=== PATIENT | male | born 1980 | race Caucasian/White ===

== ENCOUNTER 2019-09-13 00:39 | Emergency (ER) | payer OTHER ==
[2019-09-13] MEDS ORDERED: NA CHLORIDE 0.9% 1,000 ML ONE (01:04)
[2019-09-13 01:26] LABS: Absolute Lymphocytes (CBC) 1.8 K/uL (0.7-4.9); Basophils % 0.5 % (0-1.3); Hematocrit 43.9 % (39.6-49.0); Lymphocytes % 26.9 % (15.3-44.8); MPV 8.7 fL (7.6-11.3); RBC Red Blood Cell Count 5.12 M/uL (4.33-5.43)
[2019-09-13 01:34] LABS: Urine Blood 2+ (NEG); Urine Glucose NEGATIVE (NEG); Urine Protein 1+ (NEG); Urine Specific Gravity >1.030 (1.005-1.030)
[2019-09-13 01:49] LABS: Barbiturates NEGATIVE (NEGATIVE); Benzodiazepines NEGATIVE (NEGATIVE); Cocaine NEGATIVE (NEGATIVE); METHAMPHETAM NEGATIVE (NEGATIVE); Methadone NEGATIVE (NEGATIVE); Opiates NEGATIVE (NEGATIVE); Phencyclidine NEGATIVE (NEGATIVE); THC Cannibis NEGATIVE (NEGATIVE)
--- NOTE | 2019-09-13 01:57 | EDPHYS ---
Physician Documentation [facility] Name: Rafael Mcmullen Age: 39 yrs Sex: Male : 1980 Arrival Date: 09/13/2019 Time: 00:[address] Private MD: Fer Luong HPI: 09/12 00:54 This 39 yrs old Male presents to ER via EMS with complaints of Seizure. yoko 00:54 The patient presents after having a single isolated seizure, that lasted 2 minute(s). yoko Character of seizure(s): Loss of consciousness: the patient experienced loss of consciousness, Motor activity: generalized, shaking all over, Incontinence: none, Apnea: the patient did not experience apnea, Circulation: the patient did not experience evidence of pulse disturbance. Seizure onset: just prior to arrival. Context: the seizure(s) was witnessed, by family, . Seizure Hx: the patient has no previous seizure history. Associated injury: The patient did not suffer any apparent associated injury. EMS care: none. Current symptoms: Currently, the patient is not experiencing any symptoms, the patient feels back to baseline. The patient has not experienced similar symptoms in the past. Historical: - Allergies: 00:51 No Known Allergies; jd3 - Home Meds: 00:51 None [Active]; jd3 - PMHx: 00:51 None; jd3 - PSHx: 00:51 back surgery; Knee surgery; pneumothorax; jd3 - Immunization history:: Adult Immunizations up to date. - Social history:: Smoking status: Patient reports use of chewing tobacco. - Family history:: not pertinent. ROS: 00:54 Constitutional: Negative for fever, chills, and weight loss, Eyes: Negative for injury, yoko pain, redness, and discharge, ENT: Negative for injury, pain, and discharge, Neck: Negative for injury, pain, and swelling, Cardiovascular: Negative for chest pain, palpitations, and edema, Respiratory: Negative for shortness of breath, cough, wheezing, and pleuritic chest pain, Abdomen/GI: Negative for abdominal pain, nausea, vomiting, diarrhea, and constipation, Back: Negative for injury and pain, : Negative for injury, bleeding, discharge, and swelling, MS/Extremity: Negative for injury and deformity, Skin: Negative for injury, rash, and discoloration, Psych: Negative for depression, anxiety, suicide ideation, homicidal ideation, and hallucinations, Allergy/Immunology: Negative for hives, rash, and allergies, Endocrine: Negative for neck swelling, polydipsia, polyuria, polyphagia, and marked weight changes. 00:54 Neuro: Positive for seizure activity. Exam: 00:47 ECG was reviewed by the Attending Physician. yoko 00:54 Constitutional: This is a well developed, well nourished patient who is awake, alert, yoko and in no acute distress. Head/Face: Normocephalic, atraumatic. Eyes: Pupils equal round and reactive to light, extra-ocular motions intact. Lids and lashes normal. Conjunctiva and sclera are non-icteric and not injected. Cornea within normal limits. Periorbital areas with no swelling, redness, or edema. ENT: Nares patent. No nasal discharge, no septal abnormalities noted. Tympanic membranes are normal and external auditory canals are clear. Oropharynx with no redness, swelling, or masses, exudates, or evidence of obstruction, uvula midline. Mucous membranes moist. Neck: Trachea midline, no thyromegaly or masses palpated, and no cervical lymphadenopathy. Supple, full range of motion without nuchal rigidity, or vertebral point tenderness. No Meningismus. Chest/axilla: Normal chest wall appearance and motion. Nontender with no deformity. No lesions are appreciated. Cardiovascular: Regular rate and rhythm with a normal S1 and S2. No gallops, murmurs, or rubs. Normal PMI, no JVD. No pulse deficits. Respiratory: Lungs have equal breath sounds bilaterally, clear to auscultation and percussion. No rales, rhonchi or wheezes noted. No increased work of breathing, no retractions or nasal flaring. Abdomen/GI: Soft, non-tender, with normal bowel sounds. No distension or tympany. No guarding or rebound. No evidence of tenderness throughout. Back: No spinal tenderness. No costovertebral tenderness. Full range of motion. Male : Normal genitalia with no discharge or lesions. Skin: Warm, dry with normal turgor. Normal color with no rashes, no lesions, and no evidence of cellulitis. MS/ Extremity: Pulses equal, no cyanosis. Neurovascular intact. Full, normal range of motion. Neuro: Awake and alert, GCS 15, oriented to person, place, time, and situation. Cranial nerves II-XII grossly intact. Motor strength 5/5 in all extremities. Sensory grossly intact. Cerebellar exam normal. Normal gait. Psych: Awake, alert, with orientation to person, place and time. Behavior, mood, and affect are within normal limits. 00:54 Neck: External neck: is normal, no acute changes, ROM/movement: is normal, no acute changes, Lymph nodes: no appreciated lymphadenopathy. Vital Signs: 00:51 BP 147 / 98; Pulse 99; Resp 17 S; Temp 98.2(O); Pulse Ox 98% on R/A; Weight 86.18 kg jd3 (R); Height 6 ft. 0 in. (182.88 cm) (R); Pain 0/10; 02:24 BP 140 / 89; Pulse 84; Resp 17 S; Pulse Ox 97% on R/A; jd3 03:20 BP 144 / 92; Pulse 96; Resp 16 S; Pulse Ox 97% on R/A; jd3 04:09 BP 148 / 86; Pulse 81; Resp 17 S; Pulse Ox 97% on R/A; jd3 00:51 Body Mass Index 25.77 (86.18 kg, 182.88 cm) jd3 [place] Coma Score: 00:53 Eye Response: spontaneous(4). Verbal Response: oriented(5). Motor Response: obeys jd3 commands(6). Total: 15. MDM: 00:41 Patient medically screened. [facility] 00:55 Data reviewed: vital signs, nurses notes, lab test result(s), EKG, radiologic studies, [facility] CT scan, plain films. 00:56 Differential diagnosis: drug overdose, cardiac arrhythmia, seizure, TIA. Data [facility] interpreted: admission nurse coordinator: rate is 99 beats/min, Pulse oximetry: on room air is 98 %. Test interpretation: by ED physician or midlevel provider: ECG, plain radiologic studies. Counseling: I had a detailed discussion with the patient and/or guardian regarding: the historical points, exam findings, and any diagnostic results supporting the discharge/admit diagnosis, lab results, radiology results, the need for outpatient follow up, for definitive care, a neurologist. ED course: hx of spon ptx. 01:47 ED course: left parietal brain mass with edema, vent obs on left. ED course: dw , yoko and pt , going to neuro icu at [facility]. 02:03 Physician consultation: neuro team, icu, [facility] [facility] 03:17 ED course: late history, pt had many falls prior to arrival, no co back pain, will ct [facility] c/t/l spine ro fx. 09/12 00:47 Order name: Basic Metabolic Panel; Complete Time: 02:04 [facility] 09/12 00:47 Order name: CBC with Diff; Complete Time: 01:47 [facility] 09/12 00:47 Order name: LFT's; Complete Time: 02:04 [facility] 09/12 00:47 Order name: Magnesium; Complete Time: 02:04 [facility] 09/12 00:47 Order name: NT PRO-BNP; Complete Time: 02:04 [facility] 09/12 00:47 Order name: Troponin (emerg Dept Use Only); Complete Time: 02:04 [facility] 09/12 00:47 Order name: XRAY Chest (1 view) [facility] 09/12 00:47 Order name: Acetaminophen; Complete Time: 02:04 [facility] 09/12 00:47 Order name: ETOH Level; Complete Time: 01:47 [facility] 09/12 00:47 Order name: Salicylate; Complete Time: 01:47 [facility] 09/12 00:47 Order name: Urine Drug Screen; Complete Time: 02:04 [facility] 09/12 00:47 Order name: CT Head Brain wo Cont [facility] 09/12 01:32 Order name: Urine Dipstick--Ancillary (enter results); Complete Time: 01:47 ds4 09/12 03:16 Order name: CT C Spine [facility] 09/12 00:47 Order name: EKG; Complete Time: 00:49 [facility] 09/12 00:47 Order name: Cardiac monitoring; Complete Time: 00:54 [facility] 09/12 00:47 Order name: EKG - Nurse/Tech; Complete Time: 00:54 [facility] 09/12 00:47 Order name: IV Saline Lock; Complete Time: 00:54 [facility] 09/12 00:47 Order name: Labs collected and sent; Complete Time: 01:12 [facility] 09/12 00:47 Order name: O2 Per Protocol; Complete Time: 00:54 [facility] 09/12 00:47 Order name: O2 Sat Monitoring; Complete Time: 00:54 [facility] 09/12 00:47 Order name: Urine Dipstick-Ancillary (obtain specimen); Complete Time: 01:31 [facility] 09/12 00:47 Order name: Seizure Precautions; Complete Time: 00:54 [facility] 09/12 03:16 Order name: CT Chest Abdomen Pelvis W/O Contrast: trauma [facility] EC:47 Rate is 97 beats/min. Rhythm is regular. QRS [place] is Normal. CA interval is normal. QRS yoko interval is normal. QT interval is normal. No Q waves. T waves are Normal. No ST changes noted. Clinical impression: Normal ECG and No evidence of ischemia. Interpreted by me. Reviewed by me. Administered Medications: Discontinued: NS 0.9% 1000 ml IV at 1 bolus Per protocol; 1000 mL bolus 01:12 Drug: NS 0.9% 1000 ml Route: IV; Rate: 1 bolus; Site: right antecubital; jd3 02:00 Follow up: Response: No adverse reaction; IV Status: Completed infusion; IV Intake: jd3 1000ml 02:23 Drug: Keppra 1000 mg Route: IV; Rate: per protocol; Site: right antecubital; jd3 02:48 Follow up: Response: No adverse reaction; IV Status: Completed infusion; IV Intake: jd3 100ml 02:23 Drug: NS 0.9% with KCl 20 mEq/L 1000 ml Route: IV; Rate: 125 mg/hr; Site: right [facility] antecubital; 04:10 Follow up: Response: No adverse reaction; IV Status: Infusion continued upon transfer jd3 02:24 Drug: Decadron - Dexamethasone 10 mg Route: IVP; Site: right antecubital; jd3 02:48 Follow up: Response: No adverse reaction jd3 03:12 Drug: Zofran (Ondansetron) 4 mg Route: IVP; Site: right antecubital; jd3 04:11 Follow up: Response: No adverse reaction jd3 03:13 Drug: morphine 2 mg Route: IVP; Site: right antecubital; jd3 04:11 Follow up: Response: No adverse reaction; Pain is decreased; RASS: Alert and Calm (0) jd3 Disposition: 09/13/19 01:57 Transfer ordered to [facility]. Diagnosis are Convulsions, not elsewhere classified - seizure, new onset, Other disorders of brain in diseases classified elsewhere - 4x4x4 mass left parietal lobe , edema, ventricular obstruction, left, Cerebral edema, Hypokalemia. - Reason for transfer: Higher level of care. - Accepting physician is to [facility]. - Condition is Stable. - Problem is new. - Symptoms have improved. Signatures: Dispatcher [employer] Fer Moore MD MD cha Davies, Jonathon RN RN jd3 Corrections: (The following items were deleted from the chart) 02:05 01:57 09/13/2019 01:57 Transfer ordered to [facility]. yoko Diagnosis is Convulsions, not elsewhere classified - seizure, new onset; Other disorders of brain in diseases classified elsewhere - 4x4x4 mass left parietal lobe , edema, ventricular obstruction, left; Cerebral edema. Reason for transfer: Higher level of care. Accepting physician is to [facility]. Condition is Stable. Problem is new. Symptoms have improved. yoko 04:11 02:05 09/13/2019 01:57 Transfer ordered to [facility]. jd3 Diagnosis is Convulsions, not elsewhere classified - seizure, new onset; Other disorders of brain in diseases classified elsewhere - 4x4x4 mass left parietal lobe , edema, ventricular obstruction, left; Cerebral edema; Hypokalemia. Reason for transfer: Higher level of care. Accepting physician is to [facility]. Condition is Stable. Problem is new. Symptoms have improved. yoko
--- NOTE | 2019-09-13 01:57 | ER ---
Nurse's Notes [facility] Name: Rafael Mcmullen Age: 39 yrs Sex: Male : 1980 Arrival Date: 09/13/2019 Time: 00:[address] Private MD: Diagnosis: Convulsions, not elsewhere classified-seizure, new onset;Other disorders of brain in diseases classified elsewhere-4x4x4 mass left parietal lobe , edema, ventricular obstruction, left;Cerebral edema;Hypokalemia Presentation: 09/12 00:47 Chief complaint: EMS states: "the pt's woke up to the pt having a tonic clonic jd3 seizure and foaming from the mouth. this happened about 30 min ago. the reported that it lasted about 5 min. he has no history of seizures or any pertinent medical history. by the time we got there the pt was post ictal and having some memory loss. by the time we made it here the pt is waking up more and starting to remember more. pt denies any drug or alcohol use. he reports that he has done nothing out of the ordinary today.". Coronavirus screen: Proceed with normal triage. Ebola Screen: Patient negative for fever greater than or equal to 101.5 degrees Fahrenheit, and additional compatible Ebola Virus Disease symptoms. Initial Sepsis Screen: Does the patient meet any 2 criteria? No. Patient's initial sepsis screen is negative. Does the patient have a suspected source of infection? No. Patient's initial sepsis screen is negative. Risk Assessment: Do you want to hurt yourself or someone else? Patient reports no desire to harm self or others. Onset of symptoms was September 13, 2019. 00:47 Method Of Arrival: EMS: [facility] jd3 00:47 Acuity: JOEL 3 jd3 00:47 Care prior to arrival: Medication(s) given: Normal saline infusion, 500 mL, zofran 4 jd3 mg, IV initiated. 18 GA, in the right antecubital area, Glucose check: 138. Historical: - Allergies: 00:51 No Known Allergies; jd3 - Home Meds: 00:51 None [Active]; jd3 - PMHx: 00:51 None; jd3 - PSHx: 00:51 back surgery; Knee surgery; pneumothorax; jd3 - Immunization history:: Adult Immunizations up to date. - Social history:: Smoking status: Patient reports use of chewing tobacco. - Family history:: not pertinent. Screenin:53 Abuse screen: Denies threats or abuse. Nutritional screening: No deficits noted. jd3 Tuberculosis screening: No symptoms or risk factors identified. Fall Risk IV access (20 points). Ambulatory Aid- None/Bed Rest/Nurse Assist (0 pts). Gait- Normal/Bed Rest/Wheelchair (0 pts) Mental Status- Oriented to own ability (0 pts). Total Quiñones Fall Scale indicates No Risk (0-24 pts). Assessment: 00:52 General: Appears comfortable, Behavior is calm, cooperative, appropriate for age, jd3 anxious. Pain: Complains of pain in chest Quality of pain is described as aching. Neuro: Level of Consciousness is awake, alert, obeys commands, Oriented to person, place, time, situation, Facial symmetry appears normal, Pupils are PERRLA. Cardiovascular: Heart tones S1 S2 present Capillary refill < 3 seconds Patient's skin is warm and dry. Rhythm is regular. Respiratory: Airway is patent Respiratory effort is even, unlabored, Respiratory pattern is regular, symmetrical, Breath sounds are clear bilaterally. Denies cough, shortness of breath. GI: Abdomen is round non-distended, Bowel sounds present X 4 quads. Abd is soft and non tender X 4 quads. Patient currently denies constipation, diarrhea, nausea, vomiting. : No signs and/or symptoms were reported regarding the genitourinary system. EENT: No signs and/or symptoms were reported regarding the EENT system. Derm: Skin is intact, Skin is dry, Skin is normal, Skin temperature is warm. Musculoskeletal: Circulation, motion, and sensation intact. Range of motion: intact in all extremities. 02:24 Reassessment: Patient appears in no apparent distress at this time. Patient and/or jd3 family updated on plan of care and expected duration. Pain level reassessed. Patient is alert, oriented x 3, equal unlabored respirations, skin warm/dry/pink. pt expressing anxiety, verbal reassurance given Patient states feeling better. 02:46 Reassessment: report called to [facility] RN. jd3 03:00 Reassessment: Patient and/or family updated on plan of care and expected duration. Pain jd3 level reassessed. Patient is alert, oriented x 3, equal unlabored respirations, skin warm/dry/pink. pt speaking to on his cell phone. pt's informing the pt that prior to bedtime the pt was stumbling around the house as if drunk and had multiple falls. pt reporting back pain. provider notified. 04:09 Reassessment: Patient appears in no apparent distress at this time. Patient and/or jd3 family updated on plan of care and expected duration. Pain level reassessed. Patient is alert, oriented x 3, equal unlabored respirations, skin warm/dry/pink. report given to [facility] Patient states feeling better. Vital Signs: 00:51 BP 147 / 98; Pulse 99; Resp 17 S; Temp 98.2(O); Pulse Ox 98% on R/A; Weight 86.18 kg jd3 (R); Height 6 ft. 0 in. (182.88 cm) (R); Pain 0/10; 02:24 BP 140 / 89; Pulse 84; Resp 17 S; Pulse Ox 97% on R/A; jd3 03:20 BP 144 / 92; Pulse 96; Resp 16 S; Pulse Ox 97% on R/A; jd3 04:09 BP 148 / 86; Pulse 81; Resp 17 S; Pulse Ox 97% on R/A; jd3 00:51 Body Mass Index 25.77 (86.18 kg, 182.88 cm) jd3 [place] Coma Score: 00:53 Eye Response: spontaneous(4). Verbal Response: oriented(5). Motor Response: obeys jd3 commands(6). Total: 15. ED Course: 00:39 Patient arrived in ED. ds1 00:41 Fer Lizama MD is Attending Physician. yoko 00:50 Triage completed. jd3 00:52 Arm band placed on. EKG completed in triage. Results shown to MD. jd3 00:53 Patient has correct armband on for positive identification. Placed in gown. Bed in low jd3 position. Call light in reach. Side rails up X2. Seizure precautions initiated. conveyor monitor on. Pulse ox on. NIBP on. 00:58 Maintain EMS IV. Dressing intact. Good blood return noted. Site clean \\T\\ dry. Gauge \\T\\ chris 3 site: 18 G to the right AC. 01:12 Irineo Ceja RN is Primary Nurse. jd3 01:22 CT Head Brain wo Cont In Process Unspecified. EDMS 01:31 Urine Drug Screen Sent. ds4 01:33 XRAY Chest (1 view) In Process Unspecified. EDMS 04:04 CT C Spine In Process Unspecified. EDMS 04:05 CT Chest Abdomen Pelvis W/O Contrast: trauma In Process Unspecified. EDMS 04:10 No provider procedures requiring assistance completed. Patient transferred, IV remains jd3 in place. Administered Medications: Discontinued: NS 0.9% 1000 ml IV at 1 bolus Per protocol; 1000 mL bolus 01:12 Drug: NS 0.9% 1000 ml Route: IV; Rate: 1 bolus; Site: right antecubital; jd3 02:00 Follow up: Response: No adverse reaction; IV Status: Completed infusion; IV Intake: jd3 1000ml 02:23 Drug: Keppra 1000 mg Route: IV; Rate: per protocol; Site: right antecubital; jd3 02:48 Follow up: Response: No adverse reaction; IV Status: Completed infusion; IV Intake: jd3 100ml 02:23 Drug: NS 0.9% with KCl 20 mEq/L 1000 ml Route: IV; Rate: 125 mg/hr; Site: right jd3 antecubital; 04:10 Follow up: Response: No adverse reaction; IV Status: Infusion continued upon transfer jd3 02:24 Drug: Decadron - Dexamethasone 10 mg Route: IVP; Site: right antecubital; jd3 02:48 Follow up: Response: No adverse reaction jd3 03:12 Drug: Zofran (Ondansetron) 4 mg Route: IVP; Site: right antecubital; jd3 04:11 Follow up: Response: No adverse reaction jd3 03:13 Drug: morphine 2 mg Route: IVP; Site: right antecubital; jd3 04:11 Follow up: Response: No adverse reaction; Pain is decreased; RASS: Alert and Calm (0) jd3 Intake: 02:00 IV: 1000ml; Total: 1000ml. jd3 02:48 IV: 100ml; Total: 1100ml. jd3 Outcome: 01:57 ER care complete, transfer ordered by [facility] 04:10 Transferred by [facility] to [facility], Transfer form completed. jd3 X-rays sent w/ patient. 04:10 Condition: stable 04:10 Instructed on the need for transfer, Demonstrated understanding of instructions. 04:11 Patient left the ED. jd3 Signatures: Dispatcher [employer] Fer Moore MD MD cha [place], Demi ds1 [place] ds4 Irineo Ceja RN RN jd3 Corrections: (The following items were deleted from the chart) 02:24 00:52 General: Appears comfortable, Behavior is calm, cooperative, appropriate for age, jd3 jd3 02:25 02:24 Reassessment: Patient appears in no apparent distress at this time. Patient jd3 and/or family updated on plan of care and expected duration. Pain level reassessed. Patient is alert, oriented x 3, equal unlabored respirations, skin warm/dry/pink. Patient states feeling better. jd3
[2019-09-13 01:58] LABS: ALT/SGPT 67 U/L (12-78); AST/SGOT 28 U/L (15-37); Albumin 3.9 g/dL (3.4-5.0); Alkaline Phosphatase 89 U/L (45-117); BUN Blood Urea Nitrogen 15 mg/dL (7-18); Bicarbonate 25 mmol/L (21-32); Bilirubin Direct < 0.1 mg/dL (0-0.2); Bilirubin Total 0.3 mg/dL (0.2-1.0); Glucose Level 111 mg/dL (74-106); Magnesium 2.5 mg/dL (1.8-2.4); NT PRO-BNP 16 pg/mL (<125); Potassium 3.1 mmol/L (3.5-5.1); Protein, Total 7.2 g/dL (6.4-8.2); Sodium Level 140 mmol/L (136-145); Troponin (Emerg Dept Use Only) < 0.02 ng/mL (0.0-0.045)
[2019-09-13] MEDS ORDERED: LEVETIRACETAM 500 MG/5 ML VIAL IV ONE (02:12)
[2019-09-13] MEDS ORDERED: NA CHLORIDE 0.9% 100 ML IV ONE (02:13)
[2019-09-13] MEDS ORDERED: dexAMETHasone 10 MG/ML VIAL ONE (02:13)
[2019-09-13] MEDS ORDERED: NS KCL 20MEQ 1,000 ML IV ONE (02:20)
[2019-09-13] MEDS ORDERED: MORPHINE 2 MG/ML SYR ONE (03:12)
[2019-09-13] MEDS ORDERED: ONDANSETRON 4 MG/2 ML VIAL ONE (03:13)
[2019-09-13 04:32] VITALS: TEMP 98.2
[2019-09-13 04:33] VITALS: O2SAT 97
[2019-09-13 04:36] VITALS: BP 148/86
--- NOTE | 2019-09-13 11:54 | RAD REPORT ---
EXAM DESCRIPTION: RAD - Chest Single View - 09/13/2019 1:32 am CLINICAL HISTORY: CHEST PAIN Chest pain. COMPARISON: No comparisons FINDINGS: Portable technique limits examination quality. The lungs are grossly clear. The heart is normal in size. No displaced fractures. IMPRESSION: No acute intrathoracic process suspected.
--- NOTE | 2019-09-13 13:09 | RAD REPORT ---
EXAM DESCRIPTION: Chest Abd Pelvis Wo Con CLINICAL HISTORY: Blunt chest trauma;Pain COMPARISON: None. TECHNIQUE: CT CHEST ABDOMEN PELVIS WITHOUT IV CONTRAST on 09/13/2019 3:16 AM CDT This exam was performed according to our departmental dose-optimization program, which includes autom ated exposure control, adjustment of the mA and/or kV according to patient size and/or use of iterati ve reconstruction technique. FINDINGS: Chest: The heart is mildly enlarged. There is no pericardial effusion. Intrathoracic lymph nodes are not enlarged. There is no pleural effusion, pleural thickening or pneumothorax. Central airways are patent. Lungs a re clear with no consolidation, mass or interstitial lung disease. Abdomen: The liver is normal in appearance. There is no biliary dilatation. There is a calcified gall stone in the gallbladder. There is a small hiatal hernia. The pancreas and spleen are normal in appea sj. The adrenal glands and kidneys are unremarkable. Abdominal aorta is normal in course and caliber without aneurysm. There is no free air. There is no r etroperitoneal adenopathy. Pelvis: There is no bowel obstruction. Urinary bladder is moderately distended. There is no free flui d. There are small fat-containing inguinal hernias. Appendix is normal. Skeleton: There are no acute osseous findings. No suspicious bony lesions. IMPRESSION: No definite posttraumatic findings. Electronically signed by: René Monaco MD 09/13/2019 4:11 AM CDT Due to temporary technical issues with the PACS/Fluency reporting system, reports are being signed by the in house radiologist as a courtesy to ensure prompt reporting. The interpreting radiologist is f ully responsible for the content of the report.
--- NOTE | 2019-09-13 13:10 | RAD REPORT ---
EXAM DESCRIPTION: C Spine Wo Con CLINICAL HISTORY: PAIN COMPARISON: None. TECHNIQUE: CT CERVICAL SPINE WITHOUT IV CONTRAST on 09/13/2019 3:16 AM CDT This exam was performed according to our departmental dose-optimization program, which includes autom ated exposure control, adjustment of the mA and/or kV according to patient size and/or use of iterati ve reconstruction technique. FINDINGS: There is no acute fracture. Alignment is anatomic. There is incomplete posterior fusion of C1. Disc spaces are maintained. Vertebral body heights are preserved. Soft tissues are unremarkable. IMPRESSION: No acute fracture or subluxation. Electronically signed by: René Monaco MD 09/13/2019 4:12 AM CDT Due to temporary technical issues with the PACS/Fluency reporting system, reports are being signed by the in house radiologist as a courtesy to ensure prompt reporting. The interpreting radiologist is f ully responsible for the content of the report.
--- NOTE | 2019-09-13 13:11 | RAD REPORT ---
EXAM DESCRIPTION: Head Brain Wo Cont ADDENDUM #1 ADDENDUM: THIS REPORT CONTAINS FINDINGS THAT MAY BE CRITICAL TO PATIENT'S CARE: The findings were verbally discussed via telephone conference with Fer Lizama by Dr. Fairbanks on 09/13/2019 1:43 AM CDT. The results were acknowledged and understood. Electronically signed by: Jose Fairbanks DO 09/13/2019 1:43 AM CDT End of Addendum EXAM DESCRIPTION: Head Brain Wo Cont CLINICAL HISTORY: 39 years Male SEIZURE COMPARISON: None TECHNIQUE: Contiguous axial images of the brain were obtained without the administration of intraven ous contrast.This exam was performed according to our departmental dose-optimization program which in cludes use of Automated Exposure Control, adjustment of the mA and/or kV according to patient size an d/or use of iterative reconstruction technique. DLP: 805 mGy*cm FINDINGS: Brain: Hyperdense dural-based mass in the left parafalcine parietal lobe measuring 3.9 x 3 .5 x 4 cm (CC by TR by AP). Associated regional vasogenic edema in the left frontotemporal lobe. Mild minimal thickening of the posterior falx. No acute intracranial hemorrhage. Ventricles: Effacement of posterior ventricular system. No hydrocephalus.. Globes and orbits: No acute abnormality. Bones: No acute osseous finding Paranasal sinuses: Paranasal sinuses are clear. Mastoid air cells: Well pneumatized. Soft tissues: Within normal limits IMPRESSION: Hyperdense rounded dural based mass in the left parafalcine parietal region measuring up to 4 cm with thickening of the posterior falx most suggestive of parafalcine meningioma with associa marilee vasogenic edema and effacement of posterior left ventricular system. MRI with and without contras t is recommended for further characterization. Electronically signed by: Jose Fairbanks DO 09/13/2019 1:35 AM CDT Due to temporary technical issues with the PACS/Fluency reporting system, reports are being signed by the in house radiologist as a courtesy to ensure prompt reporting. The interpreting radiologist is f ully responsible for the content of the report.
== END 2019-09-13 04:11 | disposition short-term general hospital (02) ==
LOC: ER 00:39
DX: G40.89 Other seizures (principal); G93.6 Cerebral edema; G93.89 Other specified disorders of brain; I42.1 Obstructive hypertrophic cardiomyopathy; E87.6 Hypokalemia; F17.220 Nicotine dependence, chewing tobacco, uncomplicated
CPT/HCPCS: 96365; 96361; 85025; 80048; 36415; 80320; 83735; 80329 ×2; 80076; 80307 ×8; 81003; 84484; 83880; 70450; 71250; 72125; 74176; 71045; 96375; 99285; J1100; J2270; J1953; J7030; J2405